=== PATIENT | female | born 1975 | race Two or more races ===

== ENCOUNTER 2022-07-21 18:30 | Emergency (ER) | payer OTHER ==
[~2022-07-21] VITALS: Ht 167.6 cm; Wt 88.6 kg
[~2022-07-21 18:30] MED LIST: OMEP20 PO; ZOLP-280 PO
[2022-07-21] MEDS ORDERED: LEVO150 PO (18:38)
[2022-07-21] MEDS ORDERED: SODIUM CHLORIDE 0.9% 1,000 ML ONE (20:03)
[2022-07-21] MEDS ORDERED: LIDOCAINE 1%/EPI 1:200,000/PF 30 ML VIAL PERC ONE (21:15)
[2022-07-21] MEDS ORDERED: ACETAMINOPHEN 500 MG TABLET PO ONE (21:30)
[2022-07-21 22:08] VITALS: BP 139/79
== END 2022-07-21 22:13 | disposition home or self-care (01) ==
LOC: EMS 18:30
DX: S01.01XA Laceration without foreign body of scalp, initial encounter (principal); E03.9 Hypothyroidism, unspecified; Z87.19 Personal history of other diseases of the digestive system; Z98.890 Other specified postprocedural states; W20.8XXA Other cause of strike by thrown, projected or falling object, initial encounter; Y93.89 Activity, other specified; Y92.89 Other specified places as the place of occurrence of the external cause; Y99.8 Other external cause status
CPT/HCPCS: 99282; 12001; J3490; J7030

== ENCOUNTER 2022-07-30 09:42 | Emergency (ER) | payer OTHER ==
[~2022-07-30] VITALS: Ht 165.1 cm; Wt 90.9 kg
[~2022-07-30 09:42] MED LIST changes: +LEVO150 PO
[2022-07-30 09:58] VITALS: BP 112/76
== END 2022-07-30 11:00 | disposition home or self-care (01) ==
LOC: EMS 09:44
DX: S01.01XD Laceration without foreign body of scalp, subsequent encounter (principal); K21.9 Gastro-esophageal reflux disease without esophagitis; E03.9 Hypothyroidism, unspecified; Z48.02 Encounter for removal of sutures; Z85.028 Personal history of other malignant neoplasm of stomach; Z90.6 Acquired absence of other parts of urinary tract; X58.XXXD Exposure to other specified factors, subsequent encounter
CPT/HCPCS: 99281; Z7502

== ENCOUNTER 2022-08-04 13:05 | Emergency (ER) | payer OTHER ==
[~2022-08-04] VITALS: Ht 167.6 cm; Wt 90.0 kg
[2022-08-04] MEDS ORDERED: PROPARACAINE HCL 0.5% 15 ML OPHTHALMIC SOLUTION OS ONE (16:15)
[2022-08-04] MEDS ORDERED: FLUORESCEIN SODIUM 1 MG STRIP OS ONE (16:15)
[2022-08-04] MEDS ORDERED: ERYT3.5O8 OU (16:24)
[2022-08-04] MEDS ORDERED: IBUP-2070 PO (16:24)
[2022-08-04] MEDS ORDERED: SODIUM CHLORIDE 0.9% 1,000 ML IV ONE (16:30)
[2022-08-04 16:33] VITALS: BP 127/79
[2022-08-04] MEDS ORDERED: ESCI10 PO (17:30)
[2022-08-04] MEDS ORDERED: BECL10.62 IH (17:30)
[2022-08-04] MEDS ORDERED: ALBU8HFA IH (17:30)
[2022-08-04] MEDS ORDERED: SUCR1TAB PO (17:30)
[2022-08-04] MEDS ORDERED: MONT-40 PO (17:30)
[2022-08-04] MEDS ORDERED: BACL20TA PO (17:30)
[2022-08-04] MEDS ORDERED: QUET50TA24 PO (17:30)
[2022-08-04] MEDS ORDERED: GABA-1181 PO (17:30)
== END 2022-08-04 17:27 | disposition home or self-care (01) ==
LOC: EMS 13:05
DX: S05.02XA Injury of conjunctiva and corneal abrasion without foreign body, left eye, initial encounter (principal); E03.9 Hypothyroidism, unspecified; Z87.19 Personal history of other diseases of the digestive system; Z90.710 Acquired absence of both cervix and uterus; Z98.890 Other specified postprocedural states; X58.XXXA Exposure to other specified factors, initial encounter; Y93.89 Activity, other specified; Y92.89 Other specified places as the place of occurrence of the external cause; Y99.8 Other external cause status
CPT/HCPCS: 99284; 96360; J7030

== ENCOUNTER 2025-10-30 15:56 | Emergency (ER) | payer OTHER ==
[~2025-10-30] VITALS: Ht 162.6 cm; Wt 88.0 kg
[~2025-10-30 15:56] MED LIST changes: +ALBU18HF12 IH; +BACL20TA PO; +BECL10.62 IH; +ERYT3.5O8 OU; +ESCI10 PO; +GABA-1181 PO; +IBUP-1492 PO; +MONT-40 PO; +OMEP-148 PO; -OMEP20 PO; +QUET50TA24 PO; +SUCR1TAB2 PO
[2025-10-30 16:43] VITALS: TEMP 98.2
[2025-10-30 18:30] VITALS: BP 123/95; PULSE 71; RESP 18; O2SAT 100
[2025-10-30] MEDS ORDERED: CETI10TA77 PO (19:32)
[2025-10-30] MEDS ORDERED: PRED-554 PO (19:32)
[2025-10-30] MEDS: CETIRIZINE HCL 10 MG TABLET PO ONE (19:34)
== END 2025-10-30 19:42 | disposition home or self-care (01) ==
LOC: EMS 16:33
DX: L23.9 Allergic contact dermatitis, unspecified cause (principal); E03.8 Other specified hypothyroidism; K21.9 Gastro-esophageal reflux disease without esophagitis; Z98.890 Other specified postprocedural states; Z79.51 Long term (current) use of inhaled steroids; Z79.52 Long term (current) use of systemic steroids; Z90.710 Acquired absence of both cervix and uterus; Z79.899 Other long term (current) drug therapy
CPT/HCPCS: 99283; J7512